=== PATIENT | female | born 1995 | race Caucasian/White ===

== ENCOUNTER 2019-05-07 21:51 | Emergency (ER) | payer SELFPAY ==
--- NOTE | 2019-05-07 23:17 | ER Document Report ---
HPI - HPI Time Seen by Provider: 05/07/19 23:09 Pain Level: 2 Context: Patient is a 24-year-old female who presents to the emergency department with a sore throat and a fever. Her sore throat started yesterday and her fever started today. She has been taking Tylenol to help with her fever. Denies any past medical history. She does not take any medications. - ROS Notes: REVIEW OF SYSTEMS: CONSTITUTIONAL : See HPI EENT: See HPI CARDIOVASCULAR: Denies chest pain. RESPIRATORY: Denies shortness of breath, cough, congestion, difficulty breathing, or wheezing. GASTROINTESTINAL: Denies nausea, vomiting, and diarrhea. Denies abdominal pain. Denies constipation. GENITOURINARY: Denies difficulty urinating, burning, blood in urine, urgency or frequency. MUSCULOSKELETAL: Denies neck and back pain. Denies joint pain or swelling. SKIN: Denies rash, itchiness, or lesions HEMATOLOGIC : Denies easy bruising or bleeding. LYMPHATIC: Denies swollen, painful, enlarged glands. NEUROLOGICAL: Denies no numbness or tingling denies weakness. Denies headache. Denies altered mental status. Denies alteration in speech. PSYCHIATRIC: Denies stress, anxiety, alteration in sleep patterns, or depression. All other systems reviewed and negative. - CONSTITUTIONAL Constitutional: REPORTS: Fever - REPRODUCTIVE Reproductive: DENIES: : Past Medical History - Social History Smoking Status: Never Smoker Family History: Reviewed & Not Pertinent - Immunizations Immunizations up to date: Yes Hx Diphtheria, Pertussis, Tetanus Vaccination: Yes Vertical Provider Document - CONSTITUTIONAL Notes: PHYSICAL EXAMINATION: GENERAL: Appears well, healthy, well-nourished, no acute distress. HEAD: Normocephalic, atraumatic. EYES: PERRL, conjunctiva normal, all extraocular movements intact, sclera nonicteric ENT: Moist mucous membranes. Tonsillar exudate noted to bilateral tonsils. 2 +Erythematous and edematous tonsils. Tympanic membranes clear. No bulging or erythema noted to external auditory canal or TM. NECK: Supple, no noticeable swelling, redness, rash. Normal range of motion. LUNGS: Equal breath sounds bilaterally and clear to auscultation. No wheezes rales or rhonchi. CARDIOVASCULAR: S1-S2, regular rate, regular rhythm. Radial pulses 2+, normal. EXTREMITIES: Normal strength and range of motion, no pitting or edema. No cyanosis. NEUROLOGICAL: Moves all extremities upon command. Strength 5/5 in all extremities. PSYCH: Normal mood, normal affect. SKIN: Warm, dry. No rash, lesions, ulcerations noted. Normal skin turgor. - INFECTION CONTROL TRAVEL OUTSIDE OF THE [place] IN LAST 30 DAYS: No Course - Re-evaluation Re-evalutation: 05/07/19 23:17 Rapid strep and Monospot will be done. Patient has tonsillar exudate noted. I have very low suspicion for a peritonsillar abscess, as the patient's uvula is midline. Airway is patent. 05/08/19 00:57 Rapid strep test and Monospot are both negative. Since the patient has tonsillar exudate, she will be treated with penicillin here in the emergency department. [facility]. Follow-up precautions were given. Verbal discharge instructions were given to the patient. They verbalized understanding. They are stable for discharge. - Vital Signs Vital signs: Temp Pulse Resp BP Pulse Ox 98.5 F 96 20 127/73 H 98 05/07/19 22:07 05/07/19 22:07 05/07/19 22:07 05/07/19 22:07 05/07/19 22:07 Discharge - Discharge Clinical Impression: Sore throat, Exudative pharyngitis Condition: Stable Disposition: HOME, SELF-CARE Instructions: Acetaminophen, Fever ([facility]) Additional Instructions: You have been treated with a dose of penicillin here in the emergency department and do not need any additional antibiotics. You have also been given a dose of steroids to help with your throat discomfort. Please continue to take ibuprofen 600 mg every 6 hours or Tylenol 1000 mg every 6 hours as needed for throat discomfort. You can also gargle with salt water. Continue to drink plenty of fluids. Follow-up with your primary care doctor in the next several days. Return if you become unable to swallow, have difficulty breathing, pass out, have persistent vomiting that prevents you from being able to tolerate fluids, or have any other symptoms that are concerning to you. Forms: Return to Work
[2019-05-08] MEDS ORDERED: PENICILLIN G BENZATHINE 1.2 MILLION UNIT/2 ML DISP.SYRIN IM ONE (01:25)
[2019-05-08 02:57] VITALS: BP 128/81
== END 2019-05-08 02:58 | disposition home or self-care (01) ==
LOC: ER 21:51
DX: J02.9 Acute pharyngitis, unspecified (principal); R50.9 Fever, unspecified
CPT/HCPCS: 99283; 96374; 36415; 87070; 87880; 86308; J0561